=== PATIENT | male | born 1980 | race African-American/Black ===

== ENCOUNTER 2018-01-14 20:18 | Emergency (ER) | payer MEDICAID ==
[~2018-01-14] VITALS: Ht 175.3 cm; Wt 74.8 kg
[2018-01-14] MEDS ORDERED: FAMOTIDINE 20 MG TAB ONE (21:01)
[2018-01-14] MEDS ORDERED: methylPREDNISolone SOD SUCC 125 MG/2 ML VL ONE (21:01)
[2018-01-14 21:09] VITALS: BP 148/88
[2018-01-14] MEDS ORDERED: FAMOTIDINE 20 MG TAB PO ONE (21:15)
[2018-01-14] MEDS ORDERED: methylPREDNISolone SOD SUCC 125 MG/2 ML VL IM ONE (21:15)
== END 2018-01-15 00:15 | disposition left against medical advice (07) ==
LOC: ER 20:18
DX: R22.0 Localized swelling, mass and lump, head (principal); Z53.21 Procedure and treatment not carried out due to patient leaving prior to being seen by health care provider

== ENCOUNTER 2018-01-16 08:51 | Emergency (ER) | payer MEDICAID ==
[~2018-01-16] VITALS: Ht 175.3 cm; Wt 74.8 kg
[2018-01-16] MEDS ORDERED: diphenhdrAMINE HCL 50 MG/1 ML VL IV ONE (10:15)
[2018-01-16] MEDS ORDERED: SODIUM CHLORIDE 0.9% 2,000 ML IV ONE (10:15)
[2018-01-16 10:30] LABS: Basophils # (auto) 0 uL; Eosinophils # (auto) 0 uL; Hematocrit 41.8 % (41.0-53.0); Monocytes # (auto) 0.3 uL; Neutrophils # (auto) 2.7 uL; White Blood Cell 4.5 10^3/uL (4.4-10.8)
[2018-01-16 10:31] LABS: Basophils % (auto) 0.4 % (0.0-2.0); Eosinophils % (auto) 0.3 % (0.0-7.0); Lymphocytes # (auto) 1.5 uL; Lymphocytes % (auto) 32.6 % (10.0-50.0); Mean Corpuscular Hemoglobin 33.8 pg (28.0-32.0); Mean Corpuscular Hgb Conc. 33.6 g/dL (32.0-36.0); Mean Corpuscular Volume 100.6 fL (80.0-100.0); Monocytes % (auto) 6.5 % (0.0-12.0); Neutrophils % (auto) 60.2 % (37.0-80.0); Nucleated Red Blood Cells % 0.2 %; Platelet Count (auto) 210 10^3/uL (140-450); Red Blood Cells 4.15 10^6/uL (4.5-5.90); Red Cell Distribution Width 13.4 % (11.8-14.3)
[2018-01-16 10:33] LABS: Urine Bacteria NONE SEEN /hpf (None Seen); Urine Blood Negative /uL (Negative); Urine Mucus FEW (None Seen); Urine Specific Gravity 1.032 (1.001-1.035); Urine WBC 10 /hpf (0 - 3)
[2018-01-16 10:49] LABS: Albumin 3.8 g/dL (3.4-5.0); BUN/Creatinine Ratio 9.3; Bilirubin, Total 0.3 mg/dL (0.2-1.0); Calcium 8.2 mg/dL (8.5-10.1); Potassium 3.3 mmol/L (3.5-5.1)
[2018-01-16 10:51] LABS: Amphetamine Screen, Urine NEGATIVE (NEGATIVE); Barbiturate Scree,Urine NEGATIVE (NEGATIVE); Benzodiazephine Screen, Urine NEGATIVE (NEGATIVE); Cannabinoid Screen, Urine POSITIVE (NEGATIVE); Cocaine Screen, Urine NEGATIVE (NEGATIVE); Opiate Scree,Urine NEGATIVE (NEGATIVE); Phencyclidine Screen, Urine NEGATIVE (NEGATIVE)
[2018-01-16] MEDS ORDERED: SODIUM CHLORIDE 0.9% 1,000 ML IV ONE (11:30)
[2018-01-16] MEDS ORDERED: cefTRIAXone 1GM/10ml IVPUSH 10 ML IV ONE (11:45)
[2018-01-16 12:00] VITALS: BP 132/84
== END 2018-01-16 12:09 | disposition home or self-care (01) ==
LOC: EDBD 08:51 → ER 08:51 → EDUNIT# 08:51 → ER 12:09
DX: F10.10 Alcohol abuse, uncomplicated (principal); N39.0 Urinary tract infection, site not specified; R74.8 Abnormal levels of other serum enzymes; J45.909 Unspecified asthma, uncomplicated; I10 Essential (primary) hypertension; F17.210 Nicotine dependence, cigarettes, uncomplicated; F12.10 Cannabis abuse, uncomplicated
CPT/HCPCS: 36415; 80053; 80307; 80320; 81001; 83690; 85025; 96361; 96374; 96375; 99284; J1200; J7030

== ENCOUNTER 2019-01-13 03:31 | Emergency (ER) | payer MEDICAID ==
[~2019-01-13] VITALS: Ht 172.7 cm; Wt 73.5 kg
[2019-01-13 04:02] VITALS: BP 122/85
[2019-01-13] MEDS ORDERED: diphenhdrAMINE HCL 50 MG/1 ML VL IV ONE (04:15)
[2019-01-13] MEDS ORDERED: methylPREDNISolone SOD SUCC 125 MG/2 ML VL IV ONE (04:15)
[2019-01-13] MEDS ORDERED: EPINEPHrine HCL 1 MG/1 ML AMP IM ONE (04:15)
== END 2019-01-13 07:14 | disposition left against medical advice (07) ==
LOC: ER 03:33
DX: T78.40XA Allergy, unspecified, initial encounter (principal); J45.909 Unspecified asthma, uncomplicated; I10 Essential (primary) hypertension; F17.210 Nicotine dependence, cigarettes, uncomplicated; F12.90 Cannabis use, unspecified, uncomplicated; Z53.29 Procedure and treatment not carried out because of patient's decision for other reasons; X58.XXXA Exposure to other specified factors, initial encounter
CPT/HCPCS: 96372; 96374; 96375; 99283; J0171; J1200; J2930